=== PATIENT | male | born 1960 | race Caucasian/White ===

== ENCOUNTER 2021-02-05 10:47 | Outpatient (REF) | payer OTHER, SELFPAY ==
--- NOTE | ~2021-02-05 | XR_ITS ---
EXAMINATION: XR CHEST CLINICAL INFORMATION: Shortness of breath COMPARISON: None TECHNIQUE: 2 views of the chest were obtained. FINDINGS: The cardiopericardial silhouette is enlarged. No pneumothorax or significant pleural effusion. Pacemaker/defibrillator in place. No evidence of pulmonary edema. XR/XR chest 2V IMPRESSION: No acute parenchymal disease. Cardiomegaly without pulmonary edema.
== END 2021-02-05 10:48 | disposition home or self-care (01) ==
LOC: HO.HMGCX 10:47
PROVIDERS: PCP Internal Medicine; Visit Provider Hospitalist
DX: R06.02 Shortness of breath (principal); Z20.822 Contact with and (suspected) exposure to COVID-19
CPT/HCPCS: 71046; U0003; U0005

== ENCOUNTER 2021-10-02 07:31 | Outpatient (REF) | payer MEDICARE, MEDICAID, SELFPAY | END 2021-10-02 07:32 | disposition home or self-care (01) | LOC: HO.HOSX 07:31 | PROVIDERS: Visit Provider Physician Assistant | DX: Z13.89 Encounter for screening for other disorder (principal) ==

== ENCOUNTER 2022-03-15 10:38 | Outpatient (REF) | payer MEDICARE, MEDICAID, SELFPAY ==
[2022-03-15 13:53] LABS: MANUAL DIFF FLAG NO
[2022-03-15 14:02] LABS: Basophils Absolute Auto 0.1 X10*3/uL (0.0-0.2); Basophils Percent Auto 0.7 % (0-2); Eosinophils Absolute Auto 0.2 X10*3/uL (0.0-0.4); Eosinophils Percent Auto 2.7 % (0-4); Imm Gran Abs Auto 0.01 X10*3/uL (0.00-0.03); Imm Gran Pct Auto 0.1 % (0.0-0.4); Lymphocytes Percent Auto 29.2 % (20-40); Mean Corpuscular HGB Conc 34.1 g/dl (31.0-36.0); Mean Corpuscular Volume 93.8 fL (80.0-98.0); Monocytes Absolute Auto 0.7 X10*3/uL (0.1-1.2); Monocytes Percent Auto 10.8 % (2-11); Neutrophils Absolute Auto 3.8 x10*3/uL (2.0-8.3); Neutrophils Percent Auto 56.5 % (45-73); Platelet Count 269 X10*3/uL (160-400); Red Blood Count 4.69 X10*6/uL (4.60-5.80); Red Cell Distribution Width 13.3 % (11.0-16.0); White Blood Count 6.7 X10*3/uL (4.8-10.8)
[2022-03-15 14:31] LABS: Alanine Aminotransferase 35 U/L (0-40); Albumin Level 4.3 g/dL (3.5-5.0); Alkaline Phosphatase 61 U/L (39-117); Anion Gap 12 (12-20); Aspartate Amino Transferase 31 U/L (5-37); Bilirubin Total 0.6 mg/dL (0.0-1.0); Blood Urea Nitrogen 14 mg/dL (9-16); Calcium 8.8 mg/dL (8.4-10.2); Carbon Dioxide 25 mmol/L (22-29); Chloride 107 mmol/L (96-108); Cholesterol 155 mg/dL; Estimated Glomerular Filt Rate > 60; Glucose Fasting 109 mg/dL (60-99); HDL Cholesterol 40 mg/dL; LDL Cholesterol Calculated 86 mg/dl; Potassium 4.4 mmol/L (3.3-5.1); Sodium 140 mmol/L (135-145); Total Protein 7.9 g/dL (6.5-8.0); Triglycerides 148 mg/dL
[2022-03-15 14:53] LABS: TSH reflex Free T4 3.17 uIU/mL (0.32-4.0)
[2022-03-19 15:26] LABS: Vitamin D 25-OH, D2 <4 ng/mL; Vitamin D 25-OH, D3 24 ng/mL; Vitamin D 25-OH, Total 24 ng/mL (30-100)
== END 2022-03-15 10:39 | disposition home or self-care (01) ==
LOC: HO.HMGCLDS 10:38
PROVIDERS: Visit Provider Internal Medicine
DX: Z00.01 Encounter for general adult medical examination with abnormal findings (principal); I42.9 Cardiomyopathy, unspecified; E66.09 Other obesity due to excess calories; R53.83 Other fatigue
CPT/HCPCS: 36415; 80053; 80061; 82306; 84443; 85025

== ENCOUNTER 2022-11-19 11:49 | Outpatient (REF) | payer MEDICARE, MEDICAID, SELFPAY ==
--- NOTE | ~2022-11-19 | XR_ITS ---
EXAMINATION: XR KNEE AP STANDING CLINICAL INFORMATION: Pain in right knee COMPARISON: None TECHNIQUE: AP bilateral standing view and bilateral lateral of the knees was obtained. FINDINGS: Right knee: Tricompartmental joint space narrowing most significant in the medial tibiofemoral compartment where there is near [id number] apposition with tricompartmental subchondral cystic changes and osteophytes. Small suprapatellar effusion. No acute fracture or dislocation. Left knee: Tricompartmental joint space narrowing with near [id number] apposition in the medial compartment and tiny tricompartmental osteophytes with a small suprapatellar effusion. No acute fracture or dislocation. XR/XR knee standing BI IMPRESSION: Moderate degenerative changes of the bilateral knees most significant in the medial tibiofemoral compartments. Small bilateral suprapatellar effusions.
[2022-11-19 14:08] LABS: Basophils Absolute Auto 0.1 X10*3/uL (0.0-0.2); Basophils Percent Auto 1.2 % (0-2); Eosinophils Absolute Auto 0.2 X10*3/uL (0.0-0.4); Eosinophils Percent Auto 2.8 % (0-4); Hematocrit 43.3 % (42.0-52.0); Hemoglobin 14.9 g/dl (14.0-18.0); Imm Gran Abs Auto 0.03 X10*3/uL (0.00-0.03); Imm Gran Pct Auto 0.5 % (0.0-0.4); Lymphocytes Percent Auto 30.5 % (20-40); MANUAL DIFF FLAG NO; Mean Corpuscular HGB Conc 34.4 g/dl (31.0-36.0); Mean Corpuscular Hemoglobin 31.1 pg (27.0-33.0); Mean Corpuscular Volume 90.4 fL (80.0-98.0); Monocytes Absolute Auto 0.8 X10*3/uL (0.1-1.2); Neutrophils Absolute Auto 3.4 x10*3/uL (2.0-8.3); Platelet Count 255 X10*3/uL (160-400); Red Blood Count 4.79 X10*6/uL (4.60-5.80); White Blood Count 6.5 X10*3/uL (4.8-10.8)
[2022-11-19 19:45] LABS: Estimated Average Glucose 117 mg/dL; Hemoglobin A1c % 5.7 %
[2022-11-19 19:56] LABS: Alanine Aminotransferase 43 U/L (0-40); Albumin Level 4.2 g/dL (3.5-5.0); Alkaline Phosphatase 53 U/L (39-117); Anion Gap 15 (12-20); Aspartate Amino Transferase 36 U/L (5-37); Bilirubin Total 1.2 mg/dL (0.0-1.0); Blood Urea Nitrogen 17 mg/dL (9-16); Calcium 9.1 mg/dL (8.4-10.2); Carbon Dioxide 24 mmol/L (22-29); Chloride 104 mmol/L (96-108); Cholesterol 161 mg/dL; Estimated Glomerular Filt Rate > 60; Glucose Fasting 103 mg/dL (60-99); HDL Cholesterol 41 mg/dL; LDL Cholesterol Calculated 90 mg/dl; Potassium 3.9 mmol/L (3.3-5.1); Sodium 139 mmol/L (135-145); Total Protein 7.5 g/dL (6.5-8.0); Triglycerides 150 mg/dL
[2022-11-19 20:11] LABS: Prostate Specific Antigen 0.32 ng/mL (<0.05-4.0)
== END 2022-11-19 11:50 | disposition home or self-care (01) ==
LOC: HO.HMGCX 11:49
PROVIDERS: PCP Internal Medicine; Visit Provider Internal Medicine
DX: R73.01 Impaired fasting glucose (principal); R35.1 Nocturia; F41.1 Generalized anxiety disorder; I42.9 Cardiomyopathy, unspecified; J31.0 Chronic rhinitis; M25.561 Pain in right knee; M25.562 Pain in left knee; Z12.5 Encounter for screening for malignant neoplasm of prostate; Z79.899 Other long term (current) drug therapy
CPT/HCPCS: 36415; 73565; 80053; 80061; 83036; 84153; 85025

== ENCOUNTER 2023-10-28 11:27 | Outpatient (AMB) | payer MEDICARE, MEDICAID, SELFPAY ==
--- NOTE | 2023-10-28 11:21 | MHC.PC.OV ---
Intake Visit Reasons: [place] F/U~/[phone] Allergies No Known Allergies Allergy (Verified 10/28/23 11:24) Medication List - Last Reconciled 10/28/23 by Brittaney Kamara MD amiodarone 200 mg PO ONCE aspirin 81 mg PO DAILY atorvastatin 20 mg PO DAILY buspirone 10 mg PO BID PRN 30 days carvedilol 25 mg PO BID docusate sodium 100 mg PO BID PRN fluticasone propionate 50 mcg/actuation (Flonase Allergy Relief) 1 spray intranasal BID 30 days furosemide 40 mg PO DAILY sacubitril-valsartan 97-103 mg 1 tab PO BID spironolactone 25 mg PO DAILY tamsulosin (Flomax) 0.4 mg PO BEDTIME 90 days Tobacco use date assessed: 10/28/23 Dental Screening Dental Screen Date: 10/28/23 Did you have a dental visit in the last 12 months?: Yes Did you have a dental problem in the last 6 months where you did not have access to dental care?: No Was dental information given to patient?: Patient has dentist HPI [place] F/U~/[phone] HPI Details Patient is 63-year-old gentleman who was last seen December of last year, this is a telemedicine video conference Only medication patient is taking from this office now is tamsulosin for BPH And is doing well All his labs are through Cardiology office He is requesting a referral to Dermatology for skin screening Patient says that he bleeds very easily and would like to be checked Cardiomyopathy managed by housing and residence life director , they are also managing his blood pressure All his cardiac and blood pressure medications are through Cardiology office Patient is prediabetic I would recommend to continue controlling diet and maintaining weight Anxiety: Patient is feeling , and no longer taking buspirone Lipid disorder: Continue atorvastatin 20 mg BPH: Stable with tamsulosin 0.4 mg daily Osteoarthritis management through orthopedic We will book case appointment for physical exam patient is due [facility] Family History Paternal Uncle Substance use disorder Mother Mental health disorder Social History Housing: House Alcohol intake: never Patient Tobacco Use Status: Never used Tobacco e-Cigarette/Vaping Use: Never Used service: No Current occupational status: retired Cognitive needs: No Hearing needs: No Vision needs: Yes Questionnaire Thrive Questionnaire Date Thrive assessed: 03/17/22 AUDIT C Alcohol Use Questionnaire (AUDIT-C) 1. How often do you have a drink containing alcohol?: Never Total Score: 0 GIOVANNI-7 AMB Questionnaire GIOVANNI-7 Date GIOVANNI - 7 assessed: 03/17/22 Source: Developed by Drs. Shon Styles, Ermelinda Kelsey, Evangelista Pinto and colleagues, with an educational daniel from [employer]. Review of Systems Const Denies chills and Denies fever(s) ENT Denies epistaxis and Denies nasal discharge Card Denies chest pain Resp Denies chest congestion, Denies cough and Denies hemoptysis GI Denies diarrhea and Denies nausea Skin/Breast Denies rash Neuro Reports no additional complaints Psych Reports no additional complaints Endo Reports no additional complaints Physical exam (Primary Care) Tobacco/Smoking Status: Tobacco use Status Tobacco use date assessed 10/28/23 10/28/23 11:26 Patient Tobacco Use Status Never used Tobacco 10/28/23 11:22 e-Cigarette/Vaping Use Never Used 10/28/23 11:22 Thrive Assessment: Date of Thrive Assessment Date Thrive assessed 03/17/22 10/28/23 11:22 Telehealth Telehealth Location of provider rendering services: practice address Location of patient: address on file Patient Identification confirmed using: Name, : Yes Telehealth method: video Patient verbally consented to treatment: Yes Patient verbally consented to billing insurance company: Yes Patient informed of any privacy concerns related to visit: Yes Assessment and Plan Assessment & Plan (1) Nocturia: Code(s): R35.1 - Nocturia (2) Impaired fasting blood sugar: Code(s): R73.01 - Impaired fasting glucose (3) Anxiety, generalized: Code(s): F41.1 - Generalized anxiety disorder (4) Cardiomyopathy: Code(s): I42.9 - Cardiomyopathy, unspecified Qualifiers: Cardiomyopathy type: unspecified Qualified Code(s): I42.9 - Cardiomyopathy, unspecified (5) Osteoarthritis of knees, bilateral: Code(s): M17.0 - Bilateral primary osteoarthritis of knee Qualifiers: Osteoarthritis type: primary Qualified Code(s): M17.0 - Bilateral primary osteoarthritis of knee (6) Easy bruising: Code(s): R23.3 - Spontaneous ecchymoses Plan Patient is 63-year-old gentleman who was last seen December of last year, this is a telemedicine video conference Only medication patient is taking from this office now is tamsulosin for BPH And is doing well All his labs are through Cardiology office He is requesting a referral to Dermatology for skin screening Patient says that he bleeds very easily and would like to be checked Cardiomyopathy managed by housing and residence life director , they are also managing his blood pressure All his cardiac and blood pressure medications are through Cardiology office Patient is prediabetic I would recommend to continue controlling diet and maintaining weight Anxiety: Patient is feeling , and no longer taking buspirone Lipid disorder: Continue atorvastatin 20 mg BPH: Stable with tamsulosin 0.4 mg daily Osteoarthritis management through orthopedic We will book case appointment for physical exam patient is due Orders: Referrals Dermatology Referral Z12.83 - Encounter for screening for malignant neoplasm of skin Medications: Discontinued buspirone Discontinued Reason: Patient Completed Course 10 mg PO BID 30 days PRN 60 tabs 1RF anxiety Coding Level of Care Code Tele Est Pt Level 4 (47048) Diagnoses Nocturia R35.1 Impaired fasting blood sugar R73.01 Anxiety, generalized F41.1 Cardiomyopathy, unspecified type I42.9 Cardiomyopathy type: unspecified Primary osteoarthritis of both knees M17.0 Osteoarthritis type: primary Easy bruising R23.3 Time Spent (min) 30 Comment 5 pre visit, 15 with patient, 5 charting, 5 coordination of care
== END 2023-10-28 12:07 | disposition home or self-care (01) ==
LOC: HO.HMGC 11:27
PROVIDERS: PCP Internal Medicine; Visit Provider Internal Medicine
DX: R35.1 Nocturia (principal); R73.01 Impaired fasting glucose; F41.1 Generalized anxiety disorder; I42.9 Cardiomyopathy, unspecified; M17.0 Bilateral primary osteoarthritis of knee; R23.3 Spontaneous ecchymoses
CPT/HCPCS: 99214

== ENCOUNTER 2024-05-23 12:13 | Outpatient (AMB) | payer MEDICARE, MEDICAID, SELFPAY ==
[2024-05-23 12:14] VITALS: BP 148/96; PULSE 72; O2SAT 96; BMI 38.4
--- NOTE | 2024-05-23 12:14 | A.OFFVIS_ITS ---
Intake Vital Signs 05/23/24 12:14 Height 5 ft 9.5 in Weight 263 lb 8 oz BMI 38.4 BP 148/96 H Blood Pressure Location Rt brachial Position Sitting Pulse 72 Pulse Source Pulse Oximeter Pulse Oximetry (%) 96 Oxygen Delivery Method Room Air Intake Visit Reasons: AWV G0438 Allergies No Known Allergies Allergy (Verified 05/23/24 12:14) Medication List - Last Reconciled 05/23/24 by Brittaney Kamara MD amiodarone 200 mg PO ONCE aspirin 81 mg PO DAILY atorvastatin 20 mg PO DAILY carvedilol 25 mg PO BID docusate sodium 100 mg PO BID PRN fluticasone propionate 50 mcg/actuation (Flonase Allergy Relief) 1 spray intranasal BID 30 days furosemide 40 mg PO DAILY sacubitril-valsartan 97-103 mg 1 tab PO BID spironolactone 25 mg PO DAILY tamsulosin (Flomax) 0.4 mg PO BEDTIME 90 days Do you need a note to return to daycare/school/sports/work: No HPI AWV G0438 HPI Details Patient is a 63-year-old male came in today for follow-up appointment and also Medicare wellness visit Patient have severe osteoarthritis both knees which is causing limitation in his mobility, currently he is trying to get a motorized scooter and is having difficulty getting it through pharmacy retail support specialist I have placed a referral for him to see a rehab services aide, they might be able to help the patient. Patient have cardiomyopathy, and he is seeing [facility] Cardiology for the management Dr. Rosales All his medications are through their office He is due for colonoscopy, referral placed Lab order placed as well Hemoglobin A1c is 5.9 patient is prediabetic. He is taking tamsulosin for prostatic hypertrophy and is doing well. Blood pressure is slightly elevated today Medication list reviewed Patient will return in 6 months for follow-up appointment To get tamsulosin refill We BMI is elevated need to lose weight Medicare wellness visit in 1 year. HPI Comments History of Present Illness Details AWV Medical/social history reviewed Past medical history reviewed [place] of care / care team list updated Surgical/ hospitalization history reviewed Current medications including OTC and supplements reviewed Family history reviewed Tobacco controlled form updated Alcohol use form updated Illicit drug use in social history reviewed Current diagnosis of depression ?screening updated Appropriate PHQ 2/PHQ-9 completed . Vital signs reviewed Alcohol tobacco drug use reviewed and discussed . MMSE completed . ? Fall risk: ?Assessed Fall history: ?None Have you had any falls with injury in the past year?? No Have you had 2 or more falls in the past year?? No Fall risk assessment completed Home safety discussed with the patient Functional ability assessed and discussed and documented Activities of daily living reviewed and appropriate actions taken . HRA filled out by the patient and reviewed by provider and scanned . Appropriate written screening schedule established . Any health advise needed provided . Advance care planning discussed with the patient , necessary paperwork filled Examination IPPE/AWE: Balance failed Romberg failed Tandem walk failed walk-in turn intact but with difficulty rise from sit to stand intact . ?Hearing ?whisper test pass . Medication list reviewed, patient is stable on medications All other providers patient is seeing discussed and noted . PFSH Family History Paternal Uncle Substance use disorder Mother Mental health disorder Social History Housing: House Alcohol intake: never Patient Tobacco Use Status: Never used Tobacco e-Cigarette/Vaping Use: Never Used service: No Current occupational status: retired Cognitive needs: No Hearing needs: No Vision needs: Yes Questionnaire Medicare Wellness Checkup What gender do you identify with?: male During the past 4 weeks, how much have you been bothered by emotional problems such as feeling anxious, depressed, irritable, sad or downhearted, and blue?: not at all During the past 4 weeks, has your physical & emotional health limited your social activities with family, friends, neighbors, or groups?: not at all During the past 4 weeks, how much bodily pain have you generally had?: no pain During the past 4 weeks, was someone available to help you if you needed & wanted help?: yes, some During the past 4 weeks, what was the hardest physical activity you could do for at least 2 minutes?: moderate Can you get to places out of walking distance without help? (For eg., can you travel alone on buses, taxis or drive your car?): Yes Can you go shopping for groceries or clothes without someone's help?: Yes Can you prepare your own meals?: Yes Can you do your housework without help?: Yes Because of any health problems, do you need the help of another person with your personal care needs such as eating, bathing, dressing or getting around the house?: No Can you handle your own money without help?: Yes During the past 4 weeks, how would you rate your health in general?: very good During the past 4 weeks how have things been going for you?: pretty well Are you having difficulties driving your car?: no Do you always fasten your seat belt when you are in a car?: yes, usually During past 4 weeks, have you been bothered by the following: never: Falling or dizzy when standing up, Sexual problems?, Trouble eating well?, Teeth or denture problems?, Problems using the telephone? and Tiredness or fatigue? Have you fallen 2 or more times in the past year?: No Are you afraid of falling?: No Are you a smoker?: no During the past 4 weeks, how many drinks of wine, beer, or other alcoholic beverages did you have?: 1 drink or less per week Do you exercise for about 20 minutes 3 or more times a week?: no, I usually do not exercise this much Have you been given information to help with the following?: no: Hazards in your house that might hurt you? and no: Keeping track of your medications? How often do you have trouble taking medicines the way you have been told to take them?: I always take medicine as prescribed How confident are you that you can control & manage most of your health problems?: very confident What is your race?: White Mini Mental State Exam (MMSE) Orientation What is the (year) (season) (date) (day) (month)?: year, season, date, day and month Where are we (state) (county) (town or city) (hospital) (floor)?: state, county, town or city, hospital/clinic and floor Score Score: 10 Activity of Daily Living Bathing - sponge bath, tub bath or shower: receives no assistance (gets in/out by self, if usual bathing means Dressing - getting clothes from closets & drawers, including inner/outer garments & fasteners.: gets clothes & gets completely dressed without help Toileting - going to the 'toilet room' for urine/bowel elimination & cleaning self/arranging clothes: goes to toilet room, cleans self, arranges clothes without help Transfer: moves in & out of bed and chair without help (may use support object) Continence: controls urination/bowel movements completely by self Feeding: feeds self without help Total Score: 0 Information obtained from: patient Using telephone: independent Traveling: independent Shopping: independent Preparing meals: independent Housework: independent Taking medicine: independent Managing money: independent PHQ-9 Over the last 2 weeks, how often have you been bothered by any of the following problems? 1. Little interest or pleasure in doing things: several days 2. Feeling down, depressed, or hopeless: not at all 3. Trouble falling or staying asleep, or sleeping too much: not at all 4. Feeling tired or having little energy: several days 5. Poor appetite or overeating: not at all 6. Feeling bad about yourself - or that you are a failure or have let yourself or your family down: not at all 7. Trouble concentrating on things, such as reading the newspaper or watching television: not at all 8. Moving or speaking so slowly that other people could have noticed. Or the opposite - being so fidgety or restless that you have been moving around a lot more than usual: not at all 9. Thoughts that you would be better off or of hurting yourself in some way: not at all Total score: 2 Depression Screening Interpretation: Negative Depression Screening Done: Yes 21357 - PHQ-9 Billing: Yes Source: Developed by Drs. Shon Styles, Ermelinda Kelsey, Evangelista Pinto and colleagues, with an educational daniel from [employer]. Review of Systems Const Denies chills and Denies fever(s) ENT Denies epistaxis and Denies nasal discharge Card Denies chest pain Resp Denies chest congestion, Denies cough and Denies hemoptysis GI Denies diarrhea and Denies nausea Skin/Breast Denies rash Neuro Reports no additional complaints Psych Reports no additional complaints Endo Reports no additional complaints Physical Exam Vital Signs: Last Vital Signs Pulse 72 05/23/24 12:14 BP 148/96 H 05/23/24 12:14 Pulse Ox 96 05/23/24 12:14 Oxygen Delivery Method Room Air 05/23/24 12:14 BMI result Body Mass Index 38.4 Const General: cooperative, comfortable and no acute distress Orientation/consciousness: patient oriented x3 HEENT Head: Yes normocephalic Eyes General: appearance normal, both eyes and all related structures Neck Other: Supple Neck: Yes supple Resp Effort & Inspection: normal respiratory effort, no cough and no stridor Cardio Heart sounds: S1 normal heart sound present and S2 normal heart sound present Skin General skin exam: turgor normal Neuro Other: Motor sensory intact General: patient oriented x3, tone normal and moves all extremities Psych Other: Normal effect, speech clear Results AMB Hemoglobin A1c AMB Hemoglobin A1c 5.9 % Last Edit by Leonid Kim CMA on 05/23/24 12: 37 Results Reviewed Results Reviewed: Laboratory Last Values Hgb A1c (Clinic) 5.9 % (4.0-6.0) 05/23/24 12:37 Assessment & Plan Assessment & Plan (1) Medicare annual wellness visit, initial: Code(s): Z00.00 - Encounter for general adult medical examination without abnormal findings (2) Colon cancer screening: Code(s): Z12.11 - Encounter for screening for malignant neoplasm of colon (3) Cardiomyopathy: Code(s): I42.9 - Cardiomyopathy, unspecified Qualifiers: Cardiomyopathy type: unspecified Qualified Code(s): I42.9 - Cardiomyopathy, unspecified (4) Obesity due to excess calories: Code(s): E66.09 - Other obesity due to excess calories Qualifiers: Body mass index: BMI 38.0-38.9 Obesity classification: adult class 2 (BMI 35 - 39.9) Serious obesity comorbidity presence: with serious comorbidity Qualified Code(s): E66.01 - Morbid (severe) obesity due to excess calories; Z68.38 - Body mass index [BMI] 38.0-38.9, adult (5) Major depression, recurrent: Code(s): F33.9 - Major depressive disorder, recurrent, unspecified Qualifiers: Active/Remission status: in full remission Qualified Code(s): F33.42 - Major depressive disorder, recurrent, in full remission (6) Anxiety, generalized: Code(s): F41.1 - Generalized anxiety disorder (7) Impaired fasting blood sugar: Code(s): R73.01 - Impaired fasting glucose (8) Osteoarthritis of knees, bilateral: Code(s): M17.0 - Bilateral primary osteoarthritis of knee Qualifiers: Osteoarthritis type: primary Qualified Code(s): M17.0 - Bilateral primary osteoarthritis of knee (9) Right lumbar radiculitis: Code(s): M54.16 - Radiculopathy, lumbar region (10) Cardiac defibrillator in place: Code(s): Z95.810 - Presence of automatic (implantable) cardiac defibrillator (11) Shortness of breath: Code(s): R06.02 - Shortness of breath (12) Difficulty walking: Code(s): R26.2 - Difficulty in walking, not elsewhere classified Plan Patient is a 63-year-old male came in today for follow-up appointment and also Medicare wellness visit Patient have severe osteoarthritis both knees which is causing limitation in his mobility, currently he is trying to get a motorized scooter and is having difficulty getting it through pharmacy retail support specialist I have placed a referral for him to see a rehab services aide, they might be able to help the patient. Patient have cardiomyopathy, and he is seeing [facility] Cardiology for the management Dr. Rosales All his medications are through their office He is due for colonoscopy, referral placed Lab order placed as well Hemoglobin A1c is 5.9 patient is prediabetic. He is taking tamsulosin for prostatic hypertrophy and is doing well. Blood pressure is slightly elevated today Medication list reviewed Patient will return in 6 months for follow-up appointment To get tamsulosin refill We BMI is elevated need to lose weight Medicare wellness visit in 1 year. Orders: Orders Complete Blood Count Auto Diff Today E66.09 - Other obesity due to excess calories, F33.9 - Major depressive disorder, recurrent, unspecified, F41.1 - Generalized anxiety disorder, I42.9 - Cardiomyopathy, unspecified, M17.0 - Bilateral primary osteoarthritis of knee, R73.01 - Impaired fasting glucose UA CC w/rflx Micro + Cult Today I42.9 - Cardiomyopathy, unspecified Comprehensive [place]. Panel Fast Today E66.09 - Other obesity due to excess calories, F33.9 - Major depressive disorder, recurrent, unspecified, F41.1 - Generalized anxiety disorder, I42.9 - Cardiomyopathy, unspecified, M17.0 - Bilateral primary osteoarthritis of knee, R73.01 - Impaired fasting glucose Lipid Panel Today E66.09 - Other obesity due to excess calories, F33.9 - Major depressive disorder, recurrent, unspecified, F41.1 - Generalized anxiety disorder, I42.9 - Cardiomyopathy, unspecified, M17.0 - Bilateral primary osteoarthritis of knee, R73.01 - Impaired fasting glucose TSH reflex Free T4 Today E66.09 - Other obesity due to excess calories, F33.9 - Major depressive disorder, recurrent, unspecified, F41.1 - Generalized anxiety disorder, I42.9 - Cardiomyopathy, unspecified, M17.0 - Bilateral primary osteoarthritis of knee, R73.01 - Impaired fasting glucose Vitamin D 25-OH (D2 and D3) Today E66.09 - Other obesity due to excess calories, F33.9 - Major depressive disorder, recurrent, unspecified, F41.1 - Generalized anxiety disorder, I42.9 - Cardiomyopathy, unspecified, M17.0 - Bilateral primary osteoarthritis of knee, R73.01 - Impaired fasting glucose Vitamin B12 Today E66.09 - Other obesity due to excess calories, F33.9 - Major depressive disorder, recurrent, unspecified, F41.1 - Generalized anxiety disorder, I42.9 - Cardiomyopathy, unspecified, M17.0 - Bilateral primary osteoarthritis of knee, R73.01 - Impaired fasting glucose AMB Hemoglobin A1c Today Z13.9 - Encounter for screening, unspecified Referrals Gastroenterology Referral Z12.11 - Encounter for screening for malignant neoplasm of colon Physical Medicine and Rehabilitation Referral M17.0 - Bilateral primary osteoarthritis of knee, R26.2 - Difficulty in walking, not elsewhere classified Quality Reporting (2020) Depression/Bipolar (159/160/161/177) PHQ-9: Total score: 2 Coding Level of Care Code Medicare First (G0438) Est Pt Level 4 (32766) Diagnoses Medicare annual wellness visit, initial Z00.00 Colon cancer screening Z12.11 Cardiomyopathy, unspecified type I42.9 Cardiomyopathy type: unspecified Class 2 severe obesity due to excess calories with serious comorbidity and body mass index (BMI) of 38.0 to 38.9 in adult E66.01; Z68.38 Body mass index: BMI 38.0-38.9 Obesity classification: adult class 2 (BMI 35 - 39.9) Serious obesity comorbidity presence: with serious comorbidity Recurrent major depressive disorder, in full remission F33.42 Active/Remission status: in full remission Anxiety, generalized F41.1 Impaired fasting blood sugar R73.01 Primary osteoarthritis of both knees M17.0 Osteoarthritis type: primary Right lumbar radiculitis M54.[address] Z95.810 Shortness of breath R06.02 Difficulty walking R26.2 CPT Codes Advance Care Planning - Time spent: 1-15 minutes, not on file ([id number]) Advance Care Planning Forms completed: [facility] Time spent: 1-15 minutes, not on file Actual minutes spent: 14
== END 2024-05-23 12:59 | disposition home or self-care (01) ==
PROVIDERS: PCP Internal Medicine; Visit Provider Internal Medicine
DX: Z00.00 Encounter for general adult medical examination without abnormal findings (principal); I42.9 Cardiomyopathy, unspecified; E66.01 Morbid (severe) obesity due to excess calories; F33.42 Major depressive disorder, recurrent, in full remission; Z68.38 Body mass index [BMI] 38.0-38.9, adult; R73.01 Impaired fasting glucose; Z12.11 Encounter for screening for malignant neoplasm of colon; F41.1 Generalized anxiety disorder; M17.0 Bilateral primary osteoarthritis of knee; M54.16 Radiculopathy, lumbar region; Z95.810 Presence of automatic (implantable) cardiac defibrillator; R06.02 Shortness of breath; R26.2 Difficulty in walking, not elsewhere classified
CPT/HCPCS: 1124F; 83036; 99214; G0438